=== PATIENT | female | born 1950 | race Caucasian/White ===

== ENCOUNTER 2019-05-22 07:00 | Day surgery (SDC) | payer OTHER, MEDICARE ==
[~2019-05-22] VITALS: Ht 154.9 cm; Wt 65.8 kg
[2019-05-22] MEDS ORDERED: CEFAZOLIN SOD 1 GM in D5W 50 ML IV ONE (10:00)
[2019-05-22] MEDS ORDERED: LR 1,000 ML IV SCH (11:32)
[2019-05-22] MEDS ORDERED: MORPHINE 4 MG/ML INJ. SYRINGE IVP PRN ×3 (11:45)
[2019-05-22] MEDS ORDERED: METOCLOPRAMIDE HCL 10 MG/2 ML VIAL IVP PRN (11:45)
[2019-05-22] MEDS ORDERED: D5/0.45 NS 1,000 ML IV SCH (11:55)
[2019-05-22] MEDS ORDERED: HYDROmorphone 1 MG INJ. 1 MG/ML AMPUL IVP PRN (12:00)
[2019-05-22] MEDS ORDERED: HYDROcodone/ACETAMIN 5-325 MG TAB (NORCO/ VICODIN) PO PRN ×2 (12:00)
[2019-05-22] MEDS ORDERED: NS IRRIG SOLN 1000 ML IR ONE (12:05)
[2019-05-22] MEDS ORDERED: PROPOFOL 200MG/ 20ML VIAL (DIPRIVAN) IV ONE (12:05)
[2019-05-22] MEDS ORDERED: ONDANSETRON HCL 4 MG/2 ML VIAL ONE (12:05)
[2019-05-22] MEDS ORDERED: SEVOFLURANE 15 MIN GAS INH ONE (12:05)
[2019-05-22] MEDS ORDERED: MIDAZOLAM HCL 5 MG/ML VIAL (VERSED) IV ONE (12:05)
[2019-05-22] MEDS ORDERED: BUPIVACAINE /PF 0.25% 30 ML VIAL INJ ONE (12:05)
[2019-05-22] MEDS ORDERED: LR 1,000 ML IV.SOLN IV ONE (12:05)
[2019-05-22] MEDS ORDERED: SUCCINYLCHOLINE CHLORIDE 20 MG/ML(QUELICIN) ONE (12:05)
[2019-05-22] MEDS ORDERED: fentaNYL CITRATE/PF 100 MCG/2 ML AMP ONE (12:05)
[2019-05-22] MEDS ORDERED: METHYLENE BLUE 1 ML AMPUL INJ ONE (12:05)
[2019-05-22 13:03] VITALS: BP_SYST 126
== END 2019-05-22 14:05 | disposition home or self-care (01) ==
LOC: SMU 07:00 → SDS 07:00 → EDSTATUS 10:10 → SDS 14:05
PROVIDERS: ATTEND Colon & Rectal Surgery
DX: C50.912 Malignant neoplasm of unspecified site of left female breast (principal); F32.5 Major depressive disorder, single episode, in full remission; E78.5 Hyperlipidemia, unspecified; F17.210 Nicotine dependence, cigarettes, uncomplicated; Z80.0 Family history of malignant neoplasm of digestive organs
CPT/HCPCS: 78195; 88305; 88307; 88342; A9541; J0330; J0690; J2250; J2405; J2704; J3010; J3490; J7060; J7120; Q9968